=== PATIENT | male | born 1995 | race American Indian/Alaskan Native ===

== ENCOUNTER 2016-11-03 03:56 | Emergency (ER) | payer BC ==
[2016-11-03 03:56] VITALS: BMI 36.3
[2016-11-03 04:02] VITALS: BP 111/48; PULSE 98; RESP 18; TEMP 98.3; O2SAT 99
[2016-11-03] MEDS ORDERED: TDAP Vaccine 0.5 mL Syr IM ONE (04:14)
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
== END 2016-11-03 05:37 | disposition home or self-care (01) ==
LOC: ED 03:56
DX: S01.01XA Laceration without foreign body of scalp, initial encounter (principal); S51.812A Laceration without foreign body of left forearm, initial encounter; S51.012A Laceration without foreign body of left elbow, initial encounter; Y04.0XXA Assault by unarmed brawl or fight, initial encounter; X99.0XXA Assault by sharp glass, initial encounter; Y92.009 Unspecified place in unspecified non-institutional (private) residence as the place of occurrence of the external cause; Z23 Encounter for immunization

== ENCOUNTER 2018-03-22 17:35 | Emergency (ER) | payer BC ==
[2018-03-22 17:36] VITALS: BMI 36.3
== END 2018-03-22 18:00 | disposition left against medical advice (07) ==
LOC: ED 17:35
DX: Z02.89 Encounter for other administrative examinations (principal); S69.92XA Unspecified injury of left wrist, hand and finger(s), initial encounter